=== PATIENT | male | born 1950 | race Hispanic/Latino ===

== ENCOUNTER 2019-05-23 11:34 | Day surgery (SDC) | payer OTHER ==
[~2019-05-23 11:34] MED LIST: NACL 0.9% 1000 ML 1,000 ML IV SCH
--- NOTE | 2019-05-23 14:00 | Anesthesia Consultation ---
Anesthesia Consult and Med Hx Date of service: 05/23/19 - Airway Anesthetic Teeth Evaluation: Partials ROM Head & Neck: Adequate Mental/Hyoid Distance: Adequate Mallampati Class: Class III Intubation Access Assessment: Possibly Difficult - Pulmonary Exam CTA: Yes - Cardiac Exam Cardiac Exam: RRR - Pre-Operative Health Status ASA Pre-Surgery Classification: ASA2 Proposed Anesthetic Plan: MAC - Pulmonary Hx Smoking: Yes (quit 14yrs ago) Hx Respiratory Symptoms: No - Cardiovascular System Hx Hypertension: Yes Hx Heart Attack/AMI: No Hx Percutaneous Transluminal Coronary Angioplasty (PTCA): No - Central Nervous System CVA: No - Gastrointestinal Hx Gastroesophageal Reflux Disease: No - Endocrine Hx Renal Disease: No Hx Liver Disease: No Hx Non-Insulin Dependent Diabetes: Yes Hx Hypothyroidism: Yes - Other Systems Hx Obesity: Yes - Additional Comments Anesthesia Medical History Comments: No hx anesthetic complications.
--- NOTE | 2019-05-23 14:00 | Anesthesia Day of Surgery ---
Anesthesia Day of Surgery - Day of Surgery Patient Examined: Yes Patient H&P Reviewed: Yes Patient is NPO: Yes
[2019-05-23] MEDS ORDERED: WATER FOR IRRIG STERILE IR ONE (14:13)
[2019-05-23] MEDS ORDERED: WATER FOR IRRIG STERILE ONE (14:14)
[2019-05-23] MEDS ORDERED: DIPRIVAN 10 MG/ML IV ONE ×3 (14:17→14:23)
[2019-05-23] MEDS ORDERED: SUBLIMAZE ONE (14:23)
--- NOTE | 2019-05-23 14:59 | Procedure Note ---
Date of procedure: 05/23/19 Pre-op diagnosis: GERD/ Colon Polyp Screening Post-op diagnosis: other (Moderate,Erosive Esophagitis/Gastritis/Small,Hiatl Hernia/Multiple Colon Polyps/Mild to Moderate Internal Hemorrhoid) Procedure: EGD with Biopsy and Colonoscopy with Snare Polypectomy and Cold Biopsy Anesthesia: [facility] – [place], [place] Surgeon: MAYNOR ANDINO Estimated blood loss: minimal Pathology: list Specimen disposition: to lab Condition: stable Disposition: observation (Treat with PPI and avoid aspirin and NSAID and antico agulants. Resume home medication and follow up in 1 to 2 weeks ([phone]).)
--- NOTE | 2019-05-23 15:11 | History and Physical Report ---
HISTORY OF PRESENT ILLNESS: This is a 68-year-old white male who has an underlying history of diabetes mellitus and hypertension, also has a family history of cancer, the patient's sister had breast cancer. The patient has an underlying history of esophagitis, gastritis and has never had a colonoscopy done before and is being evaluated for a colonoscopy as well as an EGD. ALLERGIES: The patient has a history of allergy to AMPICILLIN and GANTRISIN. SOCIAL HISTORY: Quit smoking 20 years ago. Occasional alcohol use. No cardiac issues. He has had his flu shots. MEDICATIONS: He is on multiple medications including levothyroxine, mirtazapine, metformin, lisinopril, amlodipine, atenolol, gabapentin, glipizide, bupropion, atorvastatin and famotidine as well as tamsulosin, fish oil and sertraline. PHYSICAL EXAMINATION: GENERAL: He is afebrile. VITAL SIGNS: Blood pressure 139/75, pulse is 79, height is 5 feet 5 inches, weight is 200 pounds. HEENT: Shows no JVD. LUNGS: Clear to auscultation. CARDIOVASCULAR: Normal. ABDOMEN: Soft. Bowel sounds present. NEUROLOGIC: The patient is otherwise alert and oriented. ASSESSMENT: Colon polyp screening, gastroesophageal reflux disease, esophagitis, family history of cancer, the patient's sister had breast cancer, diabetes mellitus type 2, hypertension. PLAN: To do an EGD and a colonoscopy at [facility] on 05/23/2019. JOB# [id number] DARBY/RAÚL
--- NOTE | 2019-05-23 15:22 | Operative Report ---
PROCEDURE: EGD with biopsy. INDICATIONS: A 68-year-old white male with an underlying history of diabetes, hypertension, who has been having GERD symptoms. EGD was done to assess for the problem. DESCRIPTION OF PROCEDURE: Procedure was done after getting informed consent with the help of MAC anesthesia. Instrument was passed through the hypopharynx into the esophagus, which showed moderate distal erosive esophagitis. Stomach showed antral gastritis. Biopsy was done from the gastric antrum, gastric body and angular incisura. Additional biopsy was done from the distal esophagus. The stomach showed a small hiatal hernia on the retroverted view. The pylorus is patent. Duodenum in the first and second portion appeared normal. There was minimal bleeding from the biopsy sites. No complications associated with the procedure. ASSESSMENT: Gastroesophageal reflux disease symptoms, moderate distal erosive esophagitis, gastritis, small hiatal hernia. Plan is to treat the patient with PPI, have the patient to avoid aspirin and aspirin-related products for the next few days. Follow up in the office in 1-2 weeks' time and to do a colonoscopy as part of colon polyp screening. The patient also has underlying family history of cancer. Procedure was done in the GI lab with assistance of the GI lab team, which included RN, Hyacinth Lane and cherri Eduardo and assistance of anesthesia. JOB# [id number] DARBY/RAÚL
[2019-05-23 15:37] VITALS: BP 122/77
--- NOTE | 2019-05-23 15:47 | Operative Report ---
PROCEDURE: Colonoscopy with snare polypectomy and biopsy. INDICATIONS: A 68-year-old white male with an underlying history of diabetes and hypertension, family history of cancer. The patient's sister had breast cancer. EGD was done prior to the colonoscopy, which showed presence of esophagitis, gastritis and a small hiatal hernia. DESCRIPTION OF PROCEDURE: The procedure was done after getting informed consent. Initial rectal exam was unremarkable. Instrument was passed through the rectum onto the cecum, which was identified by the ileocecal valve and the appendiceal orifice. There were two small polyps noted in the cecum, one was removed by cold biopsy by snare polypectomy. The tip of the polypectomy snare was also applied to stop the slight oozing of blood from the polypectomy site. The remaining part of the cecum, ascending colon, transverse colon and descending colon showed normal mucosa. In the sigmoid, there was a 14 mm polyp on a stalk that was removed by snare excision and retrieved. The remaining part of the sigmoid showed normal mucosa. Small rectal polyp was noted that was removed by cold biopsy and the rectum showed mild to moderate internal hemorrhoid on the retroverted view. There was minimal bleeding from the polypectomy sites. No complications associated with the procedure. ASSESSMENT: Colon polyp screening, family history of cancer. Three colon polyps removed, one from the sigmoid, which was snare removed by snare polypectomy and retrieved, 2 from the cecum, 1 by cold biopsy and the other by snare polypectomy and the other in the rectum that was removed by cold biopsy. Again, there was minimal bleeding from the biopsy sites. No complications associated with the procedure. The patient will be asked to avoid aspirin and aspirin-related products for the next few days, resume previous medication. Treat with PPI. Follow up in the office in 1-2 weeks' time. The procedure was done in the GI lab with assistance of anesthesia and with assistance and presence of the GI lab team, which included MERRITT, Hyacinth Lane and cherri Eduardo. JOB# [id number] DARBY/RAÚL
== END 2019-05-23 11:35 | disposition home or self-care (01) ==
LOC: GIO 11:34
DX: D12.5 Benign neoplasm of sigmoid colon (principal); D12.0 Benign neoplasm of cecum; K21.0 Gastro-esophageal reflux disease with esophagitis; K29.70 Gastritis, unspecified, without bleeding; K62.1 Rectal polyp; K64.8 Other hemorrhoids; K31.89 Other diseases of stomach and duodenum; E11.9 Type 2 diabetes mellitus without complications; I10 Essential (primary) hypertension; K44.9 Diaphragmatic hernia without obstruction or gangrene; E66.9 Obesity, unspecified; E03.9 Hypothyroidism, unspecified; Z85.3 Personal history of malignant neoplasm of breast; Z88.6 Allergy status to analgesic agent; Z79.84 Long term (current) use of oral hypoglycemic drugs; Z79.899 Other long term (current) drug therapy; Z68.33 Body mass index [BMI] 33.0-33.9, adult; Z87.891 Personal history of nicotine dependence; Z88.8 Allergy status to other drugs, medicaments and biological substances
CPT/HCPCS: 82962; 88305; 88342; J2704; J3010; J7030